=== PATIENT | female | born 2000 | race African-American/Black ===

== ENCOUNTER 2025-04-07 14:55 | Emergency (ER) | payer OTHER, SELFPAY ==
[2025-04-07 15:07] VITALS: BP 123/66; PULSE 116; RESP 18; TEMP 37; O2SAT 99; BMI 32.7
--- NOTE | 2025-04-07 15:08 | ED.GENADULT ---
HPI - General Adult General Chief complaint: Upper Respiratory Symptoms Stated complaint: vomiting, dizziness, abd pain - pt is Time Seen by Provider: 04/07/25 18:11 Source: patient Mode of arrival: ambulatory Limitations: no limitations History of Present Illness ED Provider: VITALY LEAL PA-C HPI narrative: 25-year-old female, currently 14 weeks , presents to the ED today for evaluation of nausea, vomiting, poor p.o. intake, generalized weakness, dizziness, congestion, cough, headache x yesterday. She is currently in town from [place], visiting her family for her gender reveal. She follows with her OB in [place] and has already had ultrasound confirmation of intrauterine . Reports taking a COVID test at home that was negative. Denies any abdominal pain, urinary symptoms, vaginal discharge or bleeding, flank pain. Related Data Previous Rx's ?Medication ?Instructions ?Recorded cefuroxime axetil 250 mg tablet 250 mg PO BID 7 days #13 tabs 04/07/25 ondansetron 4 mg disintegrating 4 mg PO Q8H PRN nausea and 04/07/25 tablet vomiting #10 tabs oseltamivir 75 mg capsule (Tamiflu) 75 mg PO BID 5 days #9 caps 04/07/25 Allergies Allergy/AdvReac Type Severity Reaction Status Date / Time shellfish derived (shellfish) Allergy Intermediate Facial Verified 04/07/25 15:11 Swelling Review of Systems Review of Systems: Yes all other systems are reviewed and are negative PMFSH Past Medical History Attestation statement: The following information was validated with the patient. Source: old records reviewed and nursing notes reviewed Social History Social History Smoked in Last 30 Days: No Use of substances other than those prescribed or required for medical reasons: No Advance Directives: No Advance Directives Information Provided: No Do you have a plan to hurt others: No Plan Patient : Yes Physical Exam ED Vital Signs: Vital Signs - 24 hr 04/07/25 15:07 04/07/25 16:10 04/07/25 19:37 Temperature 98.6 F 98.6 F 98.1 F Pulse Rate 116 H 120 H 108 H Respiratory Rate 18 16 17 Blood Pressure 123/66 134/77 109/60 Pulse Oximetry 99 97 99 Oxygen Delivery Method Room Air Room Air Room Air 04/07/25 19:50 04/07/25 19:52 Temperature 0 F L Pulse Rate 0 L Respiratory Rate 0 L Blood Pressure 0/0 L Pulse Oximetry 100 100 Oxygen Delivery Method Room Air Room Air BMI result Body Mass Index 32.7 Tachycardic, vitals are otherwise WNL General: Well appearing, in no acute distress. Skin: Warm, dry, intact. No rashes or lesions. Head: Normocephalic, atraumatic. EENT: Hearing is intact b/l. Conjunctiva clear. PERRLA. EOM intact. Moist mucous membranes.? Neck: Supple without LAD Cardiac: Chest wall symmetric. RRR Lungs: Normal respiratory effort without accessory muscle use. CTA bilaterally. No rales, rhonchi, or wheezes.? Abdomen: soft, non-tender, non-distended. No rebound tenderness or guarding. Positive BS x4. No CVAT bilaterally Back: No midline spinous or paraspinal tenderness. No step off deformity. Ext: Upper and lower extremities atraumatic, without tenderness, deformity, swelling or erythema Neuro: AOx3. Normal speech. Ambulating with steady gait. Course Course Course Narrative: RME, this is a rapid medical exam performed by Néstor Rueda please refer to primary provider for complete H&P- 25-year-old female presents for evaluation of flu-like symptoms as well as nausea and vomiting. She reports that she is about 14 weeks . She is Reevaluation(s) Reevaluation #1: CBC without leukocytosis or left shift. no anemia, h&h stable. chemistry unremarkable. beta hcg - [id number]. she has no abdominal pain, vaginal bleeding/ abdnormal discharge. no need for imaging at this time. Patient has a UTI - will start on ceftin. She is influenza + - will start on tamiflu. She received IVF, and tylenol in ED - feels much better, tolerating PO. Patient has remained stable throughout ED visit today. Discussed worrisome signs and symptoms and when to return to the ED. All questions answered at this time. Patient is agreeable with disposition and stable for discharge. Medications Administered Discontinued Medications Generic Name Dose Route Start Last Admin Trade Name Freq PRN Reason Stop Dose Admin Cefuroxime Axetil 250 mg 04/07/25 19:28 04/07/25 19:41 Cefuroxime Axetil 250 Mg Tablet PO 04/07/25 19:29 250 mg ONCE ONE Administration Sodium Chloride 1,000 mls @ 999 mls/hr 04/07/25 18:00 04/07/25 19:23 Ns IV 04/07/25 19:00 Infused .Q1H1M CHRISTY Infusion Acetaminophen 1,000 mg in 100 mls @ 400 mls/hr 04/07/25 17:51 04/07/25 19:23 Ofirmev IV 04/07/25 18:05 Infused ONCE ONE Infusion Oseltamivir Phosphate 75 mg 04/07/25 19:28 04/07/25 19:41 Oseltamivir Phosphate 75 Mg Capsule PO 04/07/25 19:29 75 mg ONCE ONE Administration Medical Decision Making Medical Decision Making [facility] Narrative: 25-year-old female, currently 14 weeks , presents to the ED today for evaluation of nausea, vomiting, poor p.o. intake, generalized weakness, dizziness, congestion, cough, headache x yesterday. Differential diagnosis includes viral syndrome, anemia, electrolyte abnormality, dehydration, gastroenteritis, IUP Plan for labs, viral swabs, UA, ivf + tylenol and re-eval. Differential Diagnosis Differential Diagnoses: The differential diagnosis associated with the presentation includes as above. Admission/Observation Not indicated Lab Data [facility] Lab Attestation statement: I reviewed the patient's lab results. As above 04/07/25 15:36 04/07/25 15:36 Labs: Lab Results 04/07/25 Range/Units 15:36 WBC 7.2 (4.8-10.8) X10*3/uL RBC 4.51 (4.20-5.50) X10*6/uL Hgb 13.2 (12.0-16.0) g/dl Hct 38.6 (37.0-47.0) % MCV 85.6 (80.0-98.0) fL MCH 29.3 (27.0-33.0) pg MCHC 34.2 (31.0-35.0) g/dl RDW 12.4 (11.0-16.0) % Plt Count 237 (160-400) X10*3/uL MPV 10.0 (9.4-12.3) fL Immature Gran % (Auto) 0.6 H (0.0-0.4) % Neut % (Auto) 85.6 H (45-73) % Lymph % (Auto) 6.4 L (20-40) % [place] % (Auto) 6.4 (2-11) % Eos % (Auto) 0.7 (0-4) % Baso % (Auto) 0.3 (0-2) % Lymph # (Auto) 0.5 L (1.2-4.9) X10*3/uL [place] # (Auto) 0.5 (0.1-1.2) X10*3/uL Eos # (Auto) 0.1 (0.0-0.4) X10*3/uL Baso # (Auto) 0.0 (0.0-0.2) X10*3/uL Abs Immat Gran (auto) 0.04 H (0.00-0.03) X10*3/uL Absolute Neuts (auto) 6.2 (2.0-8.3) x10*3/uL Absolute Nucleated RBC 0.000 (0.0-0.012) X10*3/uL Nucleated RBC % (auto) 0.0 (0.0-0.2) /100WBC Sodium 132 L (135-145) mmol/L Potassium 3.3 (3.3-5.1) mmol/L Chloride 102 (96-108) mmol/L Carbon Dioxide 22 (22-29) mmol/L Anion Gap 11 L (12-20) BUN 6 L (9-16) mg/dL Creatinine 0.53 (0.5-1.4) mg/dL Estim Creat Clear Calc 148.9 Estimated GFR > 60 Random Glucose 128 H (60-115) mg/dL Calcium 9.0 (8.4-10.2) mg/dL Total Bilirubin 0.2 (0.0-1.0) mg/dL AST 30 (5-31) U/L ALT 20 (0-31) U/L Alkaline Phosphatase 64 (39-117) U/L Total Protein 7.0 (6.5-8.0) g/dL Albumin 3.8 (3.5-5.0) g/dL Lipase 10 (8-78) U/L Beta HCG, Quant 21973 mIU/mL Urine Color Yellow Urine Appearance Cloudy Urine pH 6.0 (5.0-9.0) Ur Specific [place] 1.025 (1.005-1.025) Urine Protein 30 (1+) H (Neg-Trace) mg/dL Urine Glucose (UA) Negative (Negative) mg/dL Urine Ketones 40 (Negative) mg/dL Urine Blood Negative (Negative) Urine Nitrite Negative (Negative) Ur Leukocyte Esterase Small (1+) H (Negative) Urine RBC 0-2 (0-2) /HPF Urine WBC 11-20 H (0-5) /HPF Ur Squamous Epith Cells 11-20 (0-2) /HPF Urine Bacteria 2+ (None Seen) Hyaline Casts 0-2 (0-2) /LPF Influenza Type A (PCR) POSITIVE A (Negative) Influenza Type B (PCR) NEGATIVE (Negative) RSV RNA Qual (PCR) NEGATIVE (Negative) SARS-CoV-2 RNA (RT-PCR) NEGATIVE (Negative) External Record Review External record reviewed: Inpatient record Prescription Management I considered prescription management with: Antiviral (Tamiflu), Antibiotic (Ceftin) and Other (zofran) Chronic Conditions Patient?s care impacted by: Other () Social Determinants Patient?s care significantly limited by Social Determinants of Health including: Other Social Determinant of Health Critical Care Time Critical Care Time Critical Care Time: No Discharge Plan Discharge Clinical Impression: Influenza A, , Urinary tract infection Patient Disposition: Home, Self-Care Instructions: Urinary Tract Infection in Women (ED), at 11 to 14 Weeks (ED) Additional Instructions: Your blood work is reassuring. Your hormone measures 50[address]. Your urine shows a urinary tract infection. I am sending an antibiotic (ceftin) to your pharmacy. You were given your 1st dose in the ED today. Take your next dose tomorrow and make sure to complete the entire course of antibiotics. You tested positive for influenza A. I am starting you on Tamiflu, an antiviral. This should help decrease the severity of her symptoms. You were given your 1st dose in the ED today. Take your next dose tomorrow. Zofran has been sent to your pharmacy to help you were nausea/vomiting Follow up with your OB.. Return with any new or worsening symptoms. In the case of an emergency call 911 Prescriptions: New oseltamivir [Tamiflu] 75 mg capsule 75 mg PO BID 5 Days Qty: 9 0RF cefuroxime axetil 250 mg tablet 250 mg PO BID 7 Days Qty: 13 0RF ondansetron 4 mg tablet,disintegrating 4 mg PO Q8H PRN (Reason: nausea and vomiting) Qty: 10 0RF Referrals: Physician,Unknown J [Primary Care Provider, Medical] Interventions: ED Discharge Assessment Last Done: 04/07/25 19:52 Discharge Date/Time: 04/07/25 19:53 Print Language: Wolof
[2025-04-07 15:43] LABS: MANUAL DIFF FLAG NO
[2025-04-07 15:45] LABS: Appearance Urine Cloudy; Glucose Urine UA Negative (Negative); Hematocrit 38.6 % (37.0-47.0); Hemoglobin 13.2 g/dl (12.0-16.0); Imm Gran Abs Auto 0.04 X10*3/uL (0.00-0.03); Imm Gran Pct Auto 0.6 % (0.0-0.4); Lymphocytes Absolute Auto 0.5 X10*3/uL (1.2-4.9); Mean Corpuscular HGB Conc 34.2 g/dl (31.0-35.0); Mean Corpuscular Hemoglobin 29.3 pg (27.0-33.0); Mean Corpuscular Volume 85.6 fL (80.0-98.0); NRBC Abs Auto 0.000 X10*3/uL (0.0-0.012); NRBC Pct Auto 0.0 /100WBC (0.0-0.2); PH 6.0 (5.0-9.0); Platelet Count 237 X10*3/uL (160-400); Red Blood Count 4.51 X10*6/uL (4.20-5.50); Specific Gravity - Urine 1.025 (1.005-1.025); UMIC TRIGGER UACC YES; White Blood Count 7.2 X10*3/uL (4.8-10.8)
[2025-04-07 15:48] LABS: UACC Culture Trigger YES
[2025-04-07 15:59] LABS: Alanine Aminotransferase 20 U/L (0-31); Albumin Level 3.8 g/dL (3.5-5.0); Alkaline Phosphatase 64 U/L (39-117); Anion Gap 11 (12-20); Aspartate Amino Transferase 30 U/L (5-31); Blood Urea Nitrogen 6 mg/dL (9-16); Calcium 9.0 mg/dL (8.4-10.2); Carbon Dioxide 22 mmol/L (22-29); Chloride 102 mmol/L (96-108); Creatinine Clr Calc Pharmacy 148.9; Estimated Glomerular Filt Rate > 60; Lipase 10 U/L (8-78); Potassium 3.3 mmol/L (3.3-5.1); Sodium 132 mmol/L (135-145); Total Protein 7.0 g/dL (6.5-8.0)
[2025-04-07 16:10] VITALS: BP 134/77; PULSE 120; RESP 16; TEMP 37; O2SAT 97
[2025-04-07 16:20] LABS: Resp Syncy Virus RNA Qual PCR NEGATIVE (Negative); SARS COV2 PCR INHOUSE NEGATIVE (Negative)
--- OUTSIDE RECORDS SUMMARY | 2025-04-07 18:29 | XMS_ITS | Encounter Summary ---
Author Organization [facility] Address [address] [place] [address] Care Team Providers Care Irish Moss Operator Name Role Phone JUAN PABLO JACKSON MD Primary Care Provid er JUAN PABLO JACKSON MD Unavailable [phone] Source Comments Please be aware that You and/or your organization are solely responsible for the use, security, privacy, and any decisions made with any information you receive from [email or web address] Encounter Details Date Type Department Care Team (Late st Contact Info) Description 11/23/2024 [facility] Health Information Management [address] [place] [address] Provider, Not In System, TECHNICAL TRAINING MANAGER-C Provider Not in System Social History Tobacco Use Types Packs/Day Years Used Date Smoking Tobacco: Never Passive Smoke Exposure: Never Smokeless Tobacco: Never Alcohol Use Standard Drinks/Week Comments Not Currently 0 (1 standard drink = 0.6 oz pur e alcohol) Humiliation, Afraid, Rape, and Kick questionnair e Answer Date Recorded Within the last year, have y ou been afraid of your partner or ex-partner? No 08/24/2022 Within the last year, have y ou been humiliated or emotionally abused in other ways by your partner or ex-partner? No Within the last year, have y ou been kicked, hit, slapped, or otherwise physically hurt by your partner or ex-partner? No 08/24/2022 Within the last year, have y ou been raped or forced to have any kind of sexual activity by your partner or ex-partner? No 08/24/2022 AUDIT-C Answer Date Recorded Q1: How often do you have a drink containing alcohol? Never 12/16/2023 Q2: How many drinks containi ng alcohol do you have on a typical day when you are drinking? Patient does not drink Q3: How often do you have si x or more drinks on one occasion? Never 12/16/2023 Overall Financial Resource Strain (CARDIA) Answe r Date Recorded How hard is it for you to pa y for the very basics like food, housing, medical care, and heating? Not hard at all 08/24/2022 PHQ-2 Answer Date Recorded Patient Health Questionnaire-2 Score 0 07/11/2021 [facility] - Occupational Stress Questionnaire Answer Date Recorded Do you feel stress - tense, restless, nervous, or anxious, or unable to sleep at night because your mind is troubled all the time - these days? Not at all 08/24/2022 [place] Depression Scale Answer Date Recorded [place] Depression Scale Total 0 08/24/2022 The thought of harming myself has occurred to me . Never 08/24/2022 Food Insecurity Answer Date Recorded Within the past 12 months, y ou worried that your food would run out before you got the money to buy more. 1 08/24/2022 Within the past 12 months, t he food you bought just didn't last and you didn't have money to get more. 1 08/24/2022 Transportation Needs Answer Date Record ed In the past 12 months, has l ack of transportation kept you from medical appointments or from getting medications? 2 08/10 In the past 12 months, has l ack of transportation kept you from meetings, work, or from getting things needed for daily living? 2 08/24/2022 [facility] Housing Answer Date Recorded Living Situation Not on file 11/26/2022 Housing Problems Not on file 11/26/2022 [facility] Safety Answer Date Recorded Threatened Not on file 11/26/2022 Insulted Not on file 11/26/2022 Physically Hurt Not on file 11/26/2022 Scream Not on file 11/26/2022 Comments No Sex and Gender Information Value Date Recorded Sex Assigned at Not on file Legal Sex Female 12:10 PM EST Gender Identity Not on file Sexual Orientation Not on file documented as of this encounter Functional Status * Are you deaf or do you have serious difficulty hearing? Answer Date of Assessment Author No 08/24/2022 7:42 AM EDT Pilar Sharma RN * Are you blind or do you have serious difficulty seeing, even when wearing glasses? Answer Date of Assessment Author No 08/24/2022 7:42 AM EDT Pilar Sharma RN * Do you have serious difficulty walking or climbing stairs? Answer Date of Assessment Author No 08/24/2022 7:42 AM EDT Pilar Sharma RN * Do you have serious difficulty dressing or bathing? Answer Date of Assessment Author No 08/24/2022 7:42 AM EDT Pilar Sharma RN * Because of a physical, mental, or emotional condition, do you have serious difficulty doing errandsalone such as visiting the doctor? Answer Date of Assessment Author No 08/24/2022 7:42 AM EDT Pilar Sharma RN documented as of this encounter Mental Status * Because of a physical, mental, or emotional condition, do you have serious difficulty concentrating, remembering, or making decisions? (5 years old or older) Answer Entry Date Author No 08/24/2022 7:42 AM EDT Pilar Sharma RN documented in this encounter Plan of Treatment Not on file documented as of this encounter Visit Diagnoses Not on filedocumented in this encounter Additional Health Concerns Infection Onset Date Last Indicated Resolved Time Gastrointestinal Rule-Out 04/19/2023 04/19/2023 Adenovirus 11/08/2024 11/08/2024 12/06/2024 10:0 6 PM EDT COVID-19 11/08/2024 11/08/2024 11/28/2024 10:0 4 PM EDT COVID-19 Rule-Out 03/25/2025 03/25/2025 03/25/2025 8:00 AM EST documented as of this encounter Care Teams Irish Moss Operator Relationship Specialty Start Date End Date JUAN PABLO JACKSON MD PCP - General Family Medicine 06/26/21 JUAN PABLO JACKSON MD [address] [facility] [place] [address] PCP - Raheel CFD Attributed Provider 11/11/23 documented as of this encounter
--- OUTSIDE RECORDS SUMMARY | 2025-04-07 18:29 | XMS_ITS | Encounter Summary ---
Author Organization [facility] Address [address] [place] [address] Care Team Providers Care Craft Superintendent Name Role Phone JUAN PABLO JACKSON MD Primary Care Provid er JUAN PABLO JACKSON MD Unavailable [phone]- [phone] Source Comments Please be aware that You and/or your organization are solely responsible for the use, security, privacy, and any decisions made with any information you receive from [employer] Encounter Details Date Type Department Care Team (Late st Contact Info) Description 02/21/2025 Results Follow-Up [facility] Emergency [address] [place] [address] Wilberto Blake, CARMINE [address] [place] [phone] Urine culture Social History Tobacco Use Types Packs/Day Years [...] ways by your partner or ex-partner? No 05 / Within the last year, have y ou [...] Recorded Patient Health Questionnaire-2 Score 0 07/11/2021 [facility] - Occupational Stress Questionnaire Answer Date Recorded Do you feel stress - tense, restless, nervous, or anxious, or unable to sleep at night because your mind is troubled all the time - these days? Not at all 08/24/2022 [place] Depression Scale Answer Date Recorded [place] Depression Scale Total 0 08/24/2022 The thought [...] things needed for daily living? 2 08/24/2022 [facility] Housing Answer Date Recorded Living Situation Not on file 11/26/2022 Housing Problems Not on file 11/26/2022 [facility] Safety Answer Date Recorded Threatened Not on file 11/26/2022 Insulted Not on file 11/26/2022 Physically Hurt Not on file 11/26/2022 Scream Not on file 11/26/2022 Comments Yes Sex and Gender Information Value Date Recorded [...] Indicated Resolved Time Gastrointestinal Rule-Out 04/19/2023 04/19/2023 COVID-19 Rule-Out 03/25/2025 03/25/2025 03/25/2025 8:00 AM EST documented as of this encounter Care Teams Craft Superintendent Relationship Specialty Start Date End Date JUAN PABLO JACKSON MD PCP - General Family Medicine 06/26/21 JUAN PABLO JACKSON MD [address] [place] [address] [address] [place] [id number] PCP - Raheel CFD Attributed Provider 11/11/23 documented as of this encounter
--- OUTSIDE RECORDS SUMMARY | 2025-04-07 18:29 | XMS_ITS | Clinical Summary ---
Author Organization [facility] Address [address] [place] [address] Care Team Providers Care Boner Meat Name Role Phone JUAN PABLO JACKSON MD Primary Care Provid er JUAN PABLO JACKSON MD Unavailable [phone] Allergies Active Allergy Reactions Criticality Noted Date Comments Dog Epithelium (Canis Lupus Familiaris) Itching,Other 07/16/2022 Latex Itching,Other 07/16/2022 Peanut Rash Low 07/16/2022 Shellfish Protein-Containing Drug Products Rash Low 07/16/2022 Medications baclofen (Lioresal) 10 MG tabletIndicatio ns:Back muscle spasm Take 0.5 tablets (5 mg total) by mouth 3 (three) times a day if needed for muscle spasms. 135 tablet 11/27/2024 Active multivitamin () 27-0.8 MG tablet Take 1 tablet by mouth 1 (one) time each day. 90 tablet 02/07/2025 05/08/19 26 Active doxylamine (Unisom) 25 MG tabletIndicatio ns:Nausea and/or Vomiting in Take 1 tablet (25 mg total) by mouth at night if needed for nausea. 30 tablet 02/17/2025 Active amoxicillin (Amoxil) 500 MG tablet Take 1 tablet (500 mg total) by mouth every 8 (eight) hours. 21 tablet 02/21/2025 Active pyridoxine 50 MG tablet Take 1 tablet (50 mg total) by mouth 1 (one) time each day. 30 tablet 03/25/2025 04/24/19 26 Active pyridoxine 25 MG tablet Take 1 tablet (25 mg total) by mouth 3 (three) times a day if needed (Nausea or vomiting). 60 tablet 02/17/2025 03/19/20 25 metoclopramide (Reglan) 10 MG tablet Take 1 tablet (10 mg total) by mouth 4 (four) times a day for 10 days. 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 Continue with local heat compresses and anti-inflammatories Chronic bilateral low back pain with right-sided sciatica 07/11/2021 Assessment & Plan (07/11/2021 11:16 AM EDT): Most likely has mechanical back pain due to the work she does. Advised to use local heat compresses, may use [id number] nonsteroidal anti-inflammatories. Get x-rays. Reflexes are brisk bilaterally. If x-rays are negative, will order MRI. Advised not to lift, pull, push any heavy weight is still a we find out what is going on with her back. Disorder of both sacroiliac joints 07/11/2021 Assessment & Plan (07/11/2021 11:17 AM EDT): Same etiology most likely, advised to use local heat compresses, nonsteroidal anti-inflammatories and avoid lifting, pulling, pushing heavy weights, do stretching exercises Hidradenitis axillaris 07/11/2021 Assessment & Plan (07/11/2021 11:18 AM EDT): Not active at this time but most likely has hidradenitis, advised to keep area clean and dry, use topical antibiotic ointment after shaving. Back muscle spasm 07/11/2021 Assessment & Plan (08/27/2021 11:48 AM EDT): Most likely due to pars defect at the L5 level, use local heat compresses. Assessment & Plan (07/11/2021 11:18 AM EDT): Start muscle relaxants, Risk, benefits, alternatives and side effects d/w patient, use local heat compresses. Do stretching Comments Yes Resolved Problems Problem Noted Date Diagnosed Date Resolved Date PROM with onset of l abor within 24 hours of rupture 08/23/2022 08/24/2022 Encounters Date Type Department Care Team Description 03/25/2025 4:21 AM EST - 03/25/2025 8:21 AM EST Emergency [facility] [address] [place] [address] Nausea and vomiting during (Primary Dx); First trimester ; Urinary tract infection in mother during first trimester of Discharge Disposition: Home or Self Care 03/25/2025 Travel 02/21/2025 Results Follow-Up [facility] [address] [place] [address] Wilberto Blake PA-C Urine culture 02/17/2025 7:29 PM EST - 02/17/2025 10:47 PM EST Emergency [facility] [address] [place] [address] Radha Cooper MD Vaginal bleeding in , first trimester (Primary Dx); Subchorionic hematoma in first trimester, single or unspecified fetus; Asymptomatic bacteriuria during in first trimester; Nausea and vomiting in Discharge Disposition: Home or Self Care 02/17/2025 Travel 02/12/2025 11:52 AM EST - 02/12/2025 1:12 PM EST Emergency [facility] [address] [place] [address] Roberth Mar DO Threatened miscarriage (Primary Dx); Vaginal bleeding in , first trimester; Subchorionic hematoma in first trimester, single or unspecified fetus Discharge Disposition: Home or Self Care 02/12/2025 Travel 02/07/2025 2:10 PM EDT - 02/07/2025 3:36 PM EDT Emergency [facility] Emergency Department [address] [place] [phone] Emily Irvin MD First trimester (Primary Dx) Discharge Disposition: Home or Self Care 02/07/2025 Travel 02/04/2025 10:06 AM EDT - 02/04/2025 12:00 PM EDT Emergency [facility] Emergency Department [address] [place] [phone] Quintin Titus MD Threatened miscarriage (Primary Dx) Discharge Disposition: Home or Self Care 02/04/2025 Travel 02/03/2025 Orders Only [address] [place] [address] [place] [phone] JUAN PABLO JACKSON MD 02/01/2025 3:15 PM EDT Office Visit [address] [place] [address] [place] [phone] JUAN PABLO JACKSON MD Less than 8 weeks gestation of (Primary Dx) from Last 3 Months Family History Medical History Relation Name Comments Hypertension Paternal Grandmother Relation Name Status Comments Paternal Grandmother Social History Tobacco Use Types Packs/Day Years Used Date Smoking Tobacco: Never Passive Smoke Exposure: Never Smokeless Tobacco: Never Tobacco Cessation:Counseling Given: No Alcohol Use Standard Drinks/Week Comments Not Currently [...] Recorded Patient Health Questionnaire-2 Score 0 07/11/2021 [facility] - Occupational Stress Questionnaire Answer Date Recorded Do you feel stress - tense, restless, nervous, or anxious, or unable to sleep at night because your mind is troubled all the time - these days? Not at all 08/24/2022 Mora Depression Scale Answer Date Recorded Mora Depression Scale Total 0 08/24/2022 The thought [...] things needed for daily living? 2 08/24/2022 [facility] Housing Answer Date Recorded Living Situation Not on file 11/26/2022 Housing Problems Not on file 11/26/2022 [facility] Safety Answer Date Recorded Threatened Not on file 11/26/2022 Insulted Not on file 11/26/2022 Physically Hurt Not on file 11/26/2022 Scream Not on file 11/26/2022 Comments Yes Sex and Gender Information Value Date Recorded Sex Assigned at Not on file Legal Sex Female 12:10 PM EST Gender Identity Not on file Sexual Orientation Not on file Last Filed Vital Signs Vital Sign Reading Time Taken Comments Blood Pressure 111/62 03/25/2025 8:00 AM EST Pulse 75 03/25/2025 8:00 AM EST Temperature 36.7 C (98.1 F) 03/25/2025 8:00 AM EST Respiratory Rate 16 03/25/2025 8:00 AM EST Oxygen Saturation 100% 03/25/2025 8:00 AM EST Inhaled Oxygen Concentration - - Weight 75 kg (165 lb 5.5 oz) 03/25/2025 4:18 AM EST Height 152.4 cm (5') 03/25/2025 4:18 AM EST Body Mass Index 32.29 03/25/2025 4:18 AM EST Plan of Treatment Health Maintenance Due Date Last Done Comments MMR Vaccines (1 of 1 - Standard series) 2002 Varicella Vaccines (1 of 2 - 13+ 2-dose series) 2014 HPV Vaccines (1 - 3-dose series) 2016 DTaP/Tdap/Td Vaccines (1 - Tdap) 2020 Hepatitis B Vaccines (1 of 3 - 19+ 3-dose series) 2020 COVID-19 Vaccine (1 - 2024- season) 2024 Influenza Vaccine (#1) 2024 Annual Physical 12/16/2024 12/16/2023 Pap Smear 2025 2022 Depression Screening 02/01/2026 02/01/2025 Zoster Vaccines (1 of 2) 2051 Respiratory Syncytial Virus (RSV) 60 years and older and/or patients (1 - 1-dose 75+ series) 2076 HIV Screening Completed 06/26/2022, 2022 Chlamydia Screening Discontinued 11/08/2024, 04/14/2023, 06/26/2022, Additional history exists Hepatitis A Vaccines Aged Out No long er eligible based on patient's age to complete this topic Meningococcal B Vaccine Aged Out No l onger eligible based on patient's age to complete this topic Meningococcal Vaccine Aged Out No kristian storm eligible based on patient's age to complete this topic Pneumococcal: Pediatrics (0 to 5 Yrs) and At-Risk Patients (6 to 49 Years) Aged Out No longer eligi ble based on patient's age to complete this topic Respiratory Syncytial Virus (RSV) <20 months Aged Out No longer eligible based on patient's age to complete this topic Procedures Procedure Name Priority Date/Time Associated Diagnosis Comments FLU A/B & COVID PCR STAT 03/25/2025 6 :29 AM EST BKR MICROSCOPIC, URINE (NUM) STAT 03/25/2025 4:44 AM EST URINALYSIS WITH REFLEX MICROSCOPIC AND REFLEX CULTURE STAT 03/25/2025 4:44 AM EST URINE CULTURE STAT 03/25/2025 4:44 AM EST EXTRA GREEN TOP Routine 03/25/2025 4:35 AM EST EXTRA LIGHT BLUE TOP Routine 03/25/2025 4:35 AM EST EXTRA TUBES Routine 03/25/2025 4:35 AM EST LIPASE STAT 03/25/2025 4:35 AM EST COMPREHENSIVE METABOLIC PANEL STAT 03/25/2025 4:35 AM EST CBC W/AUTO DIFF, REFLEX MANUAL DIFF IF INDICATED STAT 03/25/2025 4:35 AM EST US OB < 14 WEEKS EARLY TRANSVAGINAL ED Priority 02/17/2025 8:47 PM EST BKR MICROSCOPIC, URINE (NUM) STAT 02/17/2025 7:48 PM EST URINALYSIS WITH REFLEX MICROSCOPIC AND REFLEX CULTURE STAT 02/17/2025 7:48 PM EST URINE CULTURE STAT 02/17/2025 7:48 PM EST HCG, QUANTITATIVE, STAT 02/17/2025 7:44 PM EST COMPREHENSIVE METABOLIC PANEL STAT 02/17/2025 7:44 PM EST CBC W/AUTO DIFF, REFLEX MANUAL DIFF IF INDICATED STAT 02/17/2025 7:44 PM EST US OB < 14 WEEKS EARLY TRANSABDOMINAL TRANSVAGINAL ED Priority 02/12/2025 1:00 PM EST BKR POC , URINE Routine 02/12/2025 12:18 PM EST BKR MICROSCOPIC, URINE (NUM) STAT 02/12/2025 12:17 PM EST URINALYSIS WITH REFLEX MICROSCOPIC AND REFLEX CULTURE STAT 02/12/2025 12:17 PM EST URINE CULTURE STAT 02/12/2025 12:17 PM EST HCG, QUANTITATIVE, STAT 02/12/2025 12:10 PM EST ABO/RH STAT 02/12/2025 12:10 PM EST HEPATIC FUNCTION PANEL STAT 12:10 PM EST PROTIME-INR STAT 02/12/2025 12:10 PM EST APTT STAT 02/12/2025 12:10 PM EST BASIC METABOLIC PANEL STAT 02/12/2025 12:10 PM EST CBC W/AUTO DIFF, REFLEX MANUAL DIFF IF INDICATED STAT 02/12/2025 12:10 PM EST HCG, QUANTITATIVE, STAT 02/07/2025 2:23 PM EDT URINALYSIS WITH REFLEX MICROSCOPIC AND REFLEX CULTURE STAT 02/04/2025 11:43 AM EDT HCG, QUANTITATIVE, STAT 02/04/2025 10:39 AM EDT ABO/RH STAT 02/04/2025 10:39 AM EDT HCG SERUM QUAL W REFLEX TO QUANT STAT 02/04/2025 10:39 AM EDT COMPREHENSIVE METABOLIC PANEL STAT 02/04/2025 10:39 AM EDT CBC W/AUTO DIFF, REFLEX MANUAL DIFF IF INDICATED STAT 02/04/2025 10:39 AM EDT US OB < 14 WEEKS EARLY TRANSVAGINAL ED Priority 02/04/2025 10:32 AM EDT HCG TOTAL QUANTITATIVE Routine 10:30 AM EDT RESPIRATORY PANEL STAT 11/08/2024 5:0 6 AM EDT HIV ANTIBODY/ANTIGEN SCREEN Routine 06/26/2022 from Last 3 Months or Most Recently Relevant to Health Maintenance Results * FLU A/B & COVID PCR (03/25/2025 6:29 AM EST) SARS COV2 COVID19 PCR Not Detected Not Detected [facility] [employer],INC ._EUA 03/25/2025 8:00 AM EST [facility] Comment:This assay is intend ed for the detection of SARS CoV 2 Coronavirus 2019 on samples collected on nasopharyngeal swab. This assay is not indicated for evaluating clinical response and should not be used as test of cure. This assay is intended to be used along with the clinical and epidemiological evaluation of patients as part of the diagnosis for SARS CoV 2, following the current CDC guidelines. This test IS NOT able to identify coronavirus other than the SARS CoV 2 or other respiratory viruses. This test should be ordered accordingly with the current CDC guidelines and in consultation with Infection Prevention or the [facility] Public Health Department if required. Influenza A PCR Not Detected Not Detected [employer]_ROCH E [employer],INC ._EUA 03/25/2025 8:00 AM EST [facility] Influenza B, PCR Not Detected Not Detected [employer]_ROCH E [employer],INC ._EUA 03/25/2025 8:00 AM EST [facility] Swab Nasopharyngeal structure / Unknown Non-blood Collection / Unknown 03/25/2025 6:29 AM EST 03/25/2025 6:49 AM EST Lamont Sutton PA-C LAB MICROBIOLOGY - GENERAL ORD ERABLES Final Result [facility] [address] [place] [id number], * (ABNORMAL) Microscopic, urine (03/25/2025 4:44 AM EST) Only the most recent of3 resultswithin the time period is included. RBC, Urine 2 <=4 /HPF 03/25/2025 5:03 AM EST [facility] [place] WBC, Urine 17(H) <=4 /HPF 03/25/2025 5:03 AM EST [facility] Squamous Epithelial Cells, Urine 9(H) <=4 /HPF 03/25/2025 5:03 AM EST [facility] Bacteria, Urine Occasiona l(A) Negative /HPF 03/25/2025 5:03 AM EST [facility] [place] Mucus, Urine 3+(A) (none) /HPF 03/25/2025 5:03 AM EST [facility] Urine Urine specimen obtained by clean catch procedure / Unknown Non-blood Collection / Unknown 03/25/2025 4:44 AM EST 03/25/2025 4:54 AM EST Abelrado Knowles PA-C LAB URINE ORDERABLES Final Result [facility] [address] [place] [place] [address], * (ABNORMAL) Urinalysis with reflex microscopic and reflex culture (03/25/2025 4:44 AM EST) Only the most recent of4 resultswithin the time period is included. Color, Urine Yellow Straw, Yellow, Colorless 03/25/2025 5:00 AM EST [facility] Clarity, Urine Cloudy(A) Clear 03/25/2025 5:00 AM EST [facility] Leukocyte Esterase, Urine 3+(A) Negative 03/25/2025 5:00 AM EST [facility] Nitrite, Urine Negative Negative 03/25/2025 5:00 AM EST [facility] Urobilinogen, Urine 1+(A) Normal 03/25/2025 5:00 AM EST [facility] Protein, Qual, Urine Trace(A) Negative 03/25/2025 5:00 AM EST [facility] pH, Urine 6.0 5.0 - 8.5 03/25/2025 5:00 AM EST [facility] Blood, Urine Negative Negative 03/25/2025 5:00 AM EST [facility] Specific [place], Urine >1.030(H) 1.005 - 1.030 03/25/2025 5:00 AM EST [facility] Ketones, Urine Negative Negative 03/25/2025 5:00 AM EST [facility] Bilirubin, Urine Negative Negative 03/25/20 25 5:00 AM EST [facility] Glucose, Qual, Urine Negative Negative 03/25/2025 5:00 AM EST [facility] Urinalysis Comment 2024 5:00 AM EST [facility] Comment:This test was develo ped, and its performance characteristics determined by [facility]. It has not been cleared or approved by the Food and Drug Administration (FDA). The laboratory is regulated under the Clinical Laboratory Improvements Act (CLIA) as qualified to perform high complexity testing. This test is used for clinical purposes. It should not be regarded as investigational or for research. Urine Urine specimen obtained by clean catch procedure / Unknown Non-blood Collection / Unknown 03/25/2025 4:44 AM EST 03/25/2025 4:54 AM EST Abelardo ORO-C LAB URINE ORDERABLES Final Result Performing Organization Address City/[facility]/ZIP Co de Phone Number [facility] [address] [place] [address], * Urine culture (03/25/2025 4:44 AM EST) Only the most recent of3 resultswithin the time period is included. Urine Culture Mixed Urogenital Huong MERON 03/26/2025 11:40 AM EST [facility] Urine Urine specimen obtained by clean catch procedure / Unknown Non-blood Collection / Unknown 03/25/2025 4:44 AM EST 03/25/2025 5:03 AM EST [facility] Kiserg[facility] Benson ORO-Jannette LAB MICROBIOLOGY - G ENERAL ORDERABLES Final Result [facility] [address] [place] [address], * Extra Green Top (03/25/2025 4:35 AM EST) Extra Tube Hold for add-ons. 03/25/2025 11:02 AM EST [facility] Comment:Auto resulted. Blood Venous blood specimen / Unknown Venipuncture / Unknown 03/25/2025 4:35 AM EST 03/25/2025 4:42 AM EST Wero Cody Jesús [place] [facility] SPECIAL[facility] LAB BLOOD ORDERABLES F inal Result [facility] [address] [place] [address], * Extra Light Blue Top (03/25/2025 4:35 AM EST) Blood Venous blood specimen / Unknown Venipuncture / Unknown 03/25/2025 4:35 AM EST 03/25/2025 4:42 AM EST Wero Germain [facility] SPECIALIST LAB BLOOD ORDERABLES F inal Result Performing Organization Address [facility] Co de Phone Number [facility] [address] [place] [address], * CBC Auto Diff, Reflex Manual Diff if Indicated (03/25/2025 4:35 AM EST) Only the most recent of4 resultswithin the time period is included. WBC 9.08 4.40 - 10.50 10*3/uL 03/25/2025 4:48 AM EST [facility] [place] RBC 4.80 3.75 - 5.00 10*6/uL 03/25/2025 4:48 AM EST [facility] Hemoglobin 14.2 11.4 - 14.7 g/dL 03/25/2025 4:48 AM EST [facility] Hematocrit 41.8 34.3 - 45.5 % 03/25/2025 4:48 AM EST [facility] MCV 87.1 80.5 - 99.8 fL 03/25/2025 4:48 AM EST [facility] MCH 29.6 26.8 - 33.0 pg 03/25/2025 4:48 AM EST [facility] [place] MCHC 34.0 31.0 - 35.4 g/dL 03/25/2025 4:48 AM EST [facility] [place] RDW 12.3 11.7 - 14.7 % 03/25/2025 4:48 AM EST [facility] [place] Platelet Count 295 139 - 361 10*3/uL 03/25/2025 4:48 AM EST [facility] MPV 10.6 9.7 - 12.5 fL 03/25/2025 4:48 AM EST [facility] Neutrophils % 50.0 50.0 - 70.0 % 03/25/2025 4:48 AM EST [facility] Lymphocytes % 40.6 20.5 - 45.0 % 03/25/2025 4:48 AM EST [facility] Monocytes % 6.4 1.0 - 15.0 % 03/25/2025 4:48 AM EST [facility] Eosinophils % 2.3 0.0 - 5.0 % 03/25/2025 4:48 AM EST [facility] Basophils % 0.4 0.0 - 2.0 % 03/25/2025 4:48 AM EST [facility] Neutrophils Absolute 4.53 1.50 - 7.50 10*3/uL 03/25/2025 4:48 AM EST [facility] Lymphocytes Absolute 3.69 1.00 - 4.80 10*3/uL 03/25/2025 4:48 AM EST [facility] Monocytes Absolute 0.58 0.00 - 0.80 10*3/uL 03/25/2025 4:48 AM EST [facility] Eosinophils Absolute 0.21 0.00 - 0.50 10*3/uL 03/25/2025 4:48 AM EST [facility] Basophil Absolute 0.04 0.00 - 0.20 10*3/uL 03/25/2025 4:48 AM EST [facility] Blood Venous blood specimen / Unknown Venipuncture / Unknown 03/25/2025 4:35 AM EST 03/25/2025 4:42 AM EST us [facility] BLOOD ORDERABLES Final Result Performing Organization Address [facility]/ZIP Co de Phone Number [facility] [address] [place] [address], * Lipase (03/25/2025 4:35 AM EST) Pathologist [facility] Lipase 13 10 - 60 U/L [facility] [id number] V-2_[facility]_ EUA 03/25/2025 5:03 AM EST [facility] Blood Venous blood specimen / Unknown Venipuncture / Unknown 03/25/2025 4:35 AM EST 03/25/2025 4:43 AM EST [facility] LAB [facility]LOOD ORDERABLES Final Result Performing Organization Address [facility] Co de Phone Number [facility] [address] [place] [address], * (ABNORMAL) Comprehensive Metabolic Panel (CMP) (03/25/2025 4:35 AM EST) Only the most recent of3 resultswithin the time period is included. Pathologist [facility] Sodium 135 135 - 145 mmol/L [facility] ANTI-SARS -COV-2_RO HIGINIO DIAGNOSTI CS_EUA 03/25/2025 5:03 AM EST [facility] [place] Potassium 3.8 3.5 - 5.0 mmol/L [facility] ANTI-SARS -COV-2_RO HIGINIO DIAGNOSTI CS_EUA 03/25/2025 5:03 AM EST [facility] [place] Comment:Slight Hemolysis. Chloride 102 98 - 110 mmol/L [facility] ANTI-SARS -COV-2_RO HIGINIO DIAGNOSTI CS_EUA 03/25/2025 5:03 AM EST [facility] Carbon Dioxide 20.0(L) 24.0 - 32.0 mmol/L [facility] ANTI-SARS -COV-2_RO HIGINIO DIAGNOSTI CS_EUA 03/25/2025 5:03 AM EST [facility] [place] Anion Gap 13 5 - 15 mmol/L [facility] ANTI-SARS -COV-2_RO HIIGNIO [facility] 03/25/2025 5:03 AM EST [facility] [place] Comment: Hypoalbuminemia can cause the anion gap to be underestimated. Each g/dL that albumin is decreased causes the anion gap to be decreased by 2.5 mmol/L. Anion gap corrected for hypoalbuminemia = Anion Gap + 2.5(4-Albumin) BUN 7.6 5.0 - 25.0 mg/dL [facility] ANTI-SARS -COV-2_RO HIGINIO [facility] 03/25/2025 5:03 AM EST [facility] Creatinine 0.46(L) 0.60 - 1.20 mg/dL [facility] ANTI-SARS -COV-2_RO HIGINIO [facility] 03/25/2025 5:03 AM EST [facility] Glucose 88 70 - 100 mg/dL [facility] ANTI-SARS -COV-2_RO HIGINIO [facility] 03/25/2025 5:03 AM EST [facility] Calcium 8.9 8.5 - 10.5 mg/dL [facility] ANTI-SARS -COV-2_RO HIGINIO [facility] 03/25/2025 5:03 AM EST [facility] AST 18 5 - 46 U/L [facility] ANTI-SARS -COV-2_RO HIGINIO [facility] 03/25/2025 5:03 AM EST [facility] [place] ALT 10 4 - 51 U/L [facility] ANTI-SARS -COV-2_RO HIGINIO [facility] 03/25/2025 5:03 AM EST [facility] Alkaline Phosphatase 78 35 - 104 U/L [facility] ANTI-SARS -COV-2_RO HIGINIO [facility] 03/25/2025 5:03 AM EST [facility] Protein, Total 7.6 6.5 - 8.0 g/dL [facility] ANTI-SARS -COV-2_RO HIGINIO [facility] 03/25/2025 5:03 AM EST [facility] Albumin 3.80 3.20 - 5.50 g/dL [facility] ANTI-SARS -COV-2_RO HIGINIO DIAGNOSTI CS_EUA 03/25/2025 5:03 AM EST [facility] Globulin 3.8 1.9 - 3.9 g/dL [facility] ANTI-SARS -COV-2_RO HIGINIO DIAGNOSTI CS_EUA 03/25/2025 5:03 AM EST [facility] A/G Ratio 1.0(L) 1.1 - 2.2 [facility] ANTI-SARS -COV-2_RO HIGINIO DIAGNOSTI CS_EUA 03/25/2025 5:03 AM EST [facility] Bilirubin, Total 0.30 0.10 - 1.50 mg/dL [facility] ANTI-SARS -COV-2_RO HIGINIO DIAGNOSTI CS_EUA 03/25/2025 5:03 AM EST [facility] eGFR 137.2 >=60.0 mL/min/{1 .73_m2} 03/25/2025 5:03 AM EST [facility] Comment: GFR calculated based on CKD-EPI 2020 Creatinine Equation Age (Years) Average GFR 20-29 116 mL/min/1.73 m2 30-39 107 mL/min/1.73 m2 40-49 99 mL/min/1.73 m2 50-59 93 mL/min/1.73 m2 60-69 85 mL/min/1.73 m2 70+ 75 mL/min/1.73 m2 Acceptable GFR: >= 60 mL/min/1.73 m2 Chronic Kidney Disease: <60 mL/min/1.73 m2 Kidney Failure: <15 mL/min/1.73 m2 Blood Venous blood specimen / Unknown Venipuncture / Unknown 03/25/2025 4:35 AM EST 03/25/2025 4:43 AM EST us Abelardo Knowles PA-C LAB BLOOD ORDERABLES Final Result [facility] [address] [place] [place] [address], [place] [phone] * US OB < 14 Weeks Early Transvaginal (02/17/2025 8:47 PM EST) Only the most recent of2 resultswithin the time period is included. Anatomical Region Laterality Modality Body N/A Ultrasound Study GA Study Date Study HUMAIRA Working HUMAIRA (Source) 02/17/2025 Impressions 02/17/2025 9:02 PM EST 1. Single intrauterine gestation with documented cardiac activity as above. 2. Small subchorionic hematoma. Created by: Nikkie Serrano DO Signed by: Nikkie Serrano DO Signed on: 02/17/2025 21:02 EST Location: [id number] [facility] 02/17/2025 9:02 PM EST EXAM: US OB FIRST TRIMESTER INDICATION: Vaginal bleeding. COMPARISON: 02/12/2025. TECHNIQUE: Multiplanar bone-scale imaging of the pelvis was performed using transabdominal and for better assessment of the endometrium and/or adnexa, transvaginal technique. FINDINGS: INTRAUTERINE GESTATION: There is a single intrauterine gestation. The gestational sac has a normal appearance. POLE: Present. YOLK SAC: Present. HEART RATE: 119 beats per minute. MEASUREMENTS: GESTATIONAL SAC: 3.0 cm, 8 weeks, 2 days CRL: 0.4 cm, 6 weeks, 1 days HUMAIRA by CRL: 10/12/2025. HUMAIRA by LMP: 10/11/2025. UTERUS: Measures 9.0 x 6.7 x 5.6 cm. No mass. There is a 7 x 4 x 5 mm hypoechoic perigestational collection. RIGHT OVARY: Measures 3.7 x 2.6 x 2.0 cm. No mass. LEFT OVARY: Measures 3.0 x 2.5 x 2.1 cm. No mass. CUL DE SAC FLUID: None. Procedure Note Nikkie Serrano DO - 02/17/2025 EXAM: US OB FIRST TRIMESTER INDICATION: Vaginal bleeding. COMPARISON: 02/12/2025. TECHNIQUE: Multiplanar bone-scale imaging of the pelvis was performedusing transabdominal and for better assessment of the endometrium and/oradnexa, transvaginal technique. FINDINGS: INTRAUTERINE GESTATION: There is a single intrauterine gestation. Thegestational sac has a normal appearance. POLE: Present. YOLK SAC: Present. HEART RATE: 119 beats per minute. MEASUREMENTS: GESTATIONAL SAC: 3.0 cm, 8 weeks, 2 days CRL: 0.4 cm, 6 weeks, 1 days HUMAIRA by CRL: 10/12/2025. HUMAIRA by LMP: 10/11/2025. UTERUS: Measures 9.0 x 6.7 x 5.6 cm. No mass. There is a 7 x 4 x 5 mmhypoechoic perigestational collection. RIGHT OVARY: Measures 3.7 x 2.6 x 2.0 cm. No mass. LEFT OVARY: Measures 3.0 x 2.5 x 2.1 cm. No mass. CUL DE SAC FLUID: None. IMPRESSION: 1. Single intrauterine gestation with documented cardiac activity asabove. 2. Small subchorionic hematoma. Created by: Nikkie Serrano DO Signed by: Nikkie Serrano DO Signed on: 02/17/2025 21:02 EST Location: [place] [id number] us Radha Cooper MD IMG OB US PROCEDURES Eloise l Result * hCG, QuaNT, (02/17/2025 7:44 PM EST) Only the most recent of4 resultswithin the time period is included. Beta-hCG Quant 56,767.00 m[IU]/mL ELECSYS ANTI-SARS- COV-2_ROCH E DIAGNOSTIC S_EUA 02/17/2025 8:42 PM EST [facility] Blood Venous blood specimen / Unknown Venipuncture / Unknown 02/17/2025 7:44 PM EST 02/17/2025 7:53 PM EST Narrative [facility] - 02/17/2025 8:42 PM EST Approximate Gestational Age Based on hCG Result Weeks Since LMP Approximate hCG Range (Last Menstrual Period) (mIU/mL) HEALTHY NON- FEMALE <5 0.2 - 1 Weeks 5 - 50 1 - 2 Weeks 50 - 500 2 - 3 Weeks 100 - 5,000 3 - 4 Weeks 500 - 10,000 4 - 5 Weeks 1,000 - 50,000 5 - 6 Weeks 10,000 - 100,000 6 - 8 Weeks 15,000 - 200,000 8 - 12 Weeks 10,000 - 100,000 us Radha Cooper MD LAB BLOOD ORDERABLES Eloise margoth Result [facility] [place] [address], [place] [phone] * US OB < 14 Weeks Early Transabdominal Transvaginal (02/12/2025 1:00 PM EST) Anatomical Region Laterality Modality Pelvis N/A Ultrasound Study GA Study Date Study HUMAIRA Working HUMAIRA (Source) 02/12/2025 Impressions 02/12/2025 1:03 PM EST Lobular intrauterine gestational sac with a yolk sac but no pole identified. Correlation with quantitative beta hCG trend is recommended. Clinical and/or ultrasound follow-up would be of value to reassess viability. Trace subchorionic hematoma. Created by: Yakov Vazquez MD Signed by: Yakov Vazquez MD Signed on: 02/12/2025 13:03 EST Location: [id number] Narrative 02/12/2025 1:03 PM EST EXAM: US OB FIRST TRIMESTER INDICATION: Bleeding COMPARISON: 02/04/2025 TECHNIQUE: Multiplanar bone-scale imaging of the pelvis was performed using transabdominal and for better assessment of the endometrium and/or adnexa, transvaginal technique. FINDINGS: INTRAUTERINE GESTATION: There is a 1.5 cm gestational sac with a yolk sac but no normal pole identified. HUMAIRA by gestational sac measurement: 10/06/2025. HUMAIRA by LMP: 10/11/2025. UTERUS: Measures 7.7 x 4.6 x 5.1 cm. No mass. RIGHT OVARY: Measures 3.5 x 1.7 x 2.1 cm. Probable corpus luteum measures up to 2.6 cm. LEFT OVARY: Measures 2.1 x 1.6 x 1.4 cm. No mass. CUL DE SAC FLUID: Small in amount Procedure Note Yakov Vazquez MD - 02/12/2025 EXAM: US OB FIRST TRIMESTER INDICATION: Bleeding COMPARISON: 02/04/2025 TECHNIQUE: Multiplanar bone-scale imaging of the pelvis was performedusing transabdominal and for better assessment of the endometrium and/oradnexa, transvaginal technique. FINDINGS: INTRAUTERINE GESTATION: There is a 1.5 cm gestational sac with a yolk sacbut no normal pole identified. HUMAIRA by gestational sac measurement: 10/06/2025. HUMAIRA by LMP: 10/11/2025. UTERUS: Measures 7.7 x 4.6 x 5.1 cm. No mass. RIGHT OVARY: Measures 3.5 x 1.7 x 2.1 cm. Probable corpus luteum measuresup to 2.6 cm. LEFT OVARY: Measures 2.1 x 1.6 x 1.4 cm. No mass. CUL DE SAC FLUID: Small in amount IMPRESSION: Lobular intrauterine gestational sac with a yolk sac but no poleidentified. Correlation with quantitative beta hCG trend is recommended.Clinical and/or ultrasound follow-up would be of value to reassessviability. Trace subchorionic hematoma. Created by: Yakov Vazquez MD Signed by: Yakov Vazquez MD Signed on: 02/12/2025 13:03 EST Location: [id number] us Roberth Mar DO IMG OB US PROCEDURES Final Resul t * (ABNORMAL) POC , Urine (02/12/2025 12:18 PM EST) , Urine Positive( A) Negative 02/12/2025 12:25 PM EST [facility] Comment: Meter: [id number] Charge Histotechnologist: ACE [id number] Urine Urine specimen obtained by clean catch procedure / Unknown 02/12/2025 12:18 PM EST 02/12/2025 12:25 PM EST us Roberth Mar DO LAB POINT OF CARE TE ST DOCKED DEVICE UNSOLICITED RESULTS Final Result [facility] [address] [place] [address], [place] [phone] * ABO/Rh (02/12/2025 12:10 PM EST) Only the most recent of2 resultswithin the time period is included. ABO Rh O POS 02/12/2025 12:39 PM EST [facility] Blood Venous blood specimen / Unknown Venipuncture / Unknown 02/12/2025 12:10 PM EST 02/12/2025 12:16 PM EST [facility] BLOOD BANK TEST ORDERABLES F inal Result Performing Organization Address [facility] Co de Phone Number [facility] [address] [place] [place] [address], * APTT (02/12/2025 12:10 PM EST) Pathologist [facility] APTT 27.9 22.0 - 38.0 s 02/12/2025 12:23 PM EST [facility] Comment:The therapeutic rang e will vary with the clinical condition of the patient. Refer to pharmacy protocol, power plan, physician, or pharmacy staff for questions concerning APTT therapeutic ranges. Blood Venous blood specimen / Unknown Venipuncture / Unknown 02/12/2025 12:10 PM EST 02/12/2025 12:13 PM EST [facility] BLOOD ORDERABLES Final Resul t Performing Organization Address City/[facility]/ZIP Co de Phone Number [facility] [address] [place] [place] [address], [place] [phone] * Protime-INR (02/12/2025 12:10 PM EST) Prothrombin Time 12.9 11.5 - 14.9 s 02/12/2025 12:23 PM EST [facility] INR 0.94 0.80 - 1.20 02/12/2025 12:23 PM EST [facility] Comment: Routine Therapeutic Range: 2.0-3.0 High Risk Therapeutic Range: 2.5-3.5 Blood Venous blood specimen / Unknown Venipuncture / Unknown 02/12/2025 12:10 PM EST 02/12/2025 12:13 PM EST us Roberth Mar DO LAB BLOOD ORDERABLES Final Resul t [facility] [address] [place] [place] [address], * Hepatic Function Panel (02/12/2025 12:10 PM EST) Pathologist [facility] Protein, Total 7.7 6.5 - 8.0 g/dL [facility] ANTI-SARS- COV-2_ROCH E DIAGNOSTIC S_EUA 02/12/2025 12:34 PM EST [facility] Albumin 4.20 3.20 - 5.50 g/dL ELECSYS ANTI-SARS- COV-2_ROCH E DIAGNOSTIC S_EUA 02/12/2025 12:34 PM EST [facility] Globulin 3.5 1.9 - 3.9 g/dL ELECSYS ANTI-SARS- COV-2_ROCH E DIAGNOSTIC S_EUA 02/12/2025 12:34 PM EST [facility] A/G Ratio 1.2 1.1 - 2.2 ELECSYS ANTI-SARS- COV-2_ROCH E DIAGNOSTIC S_EUA 02/12/2025 12:34 PM EST [facility] Bilirubin, Total 0.30 0.10 - 1.50 mg/dL ELECSYS ANTI-SARS- COV-2_ROCH E DIAGNOSTIC S_EUA 02/12/2025 12:34 PM EST [facility] Bilirubin, Direct <0.10 0.00 - 0.30 mg/dL ELECSYS ANTI-SARS- COV-2_ROCH E DIAGNOSTIC S_EUA 02/12/2025 12:34 PM EST [facility] Alkaline Phosphatase 70 35 - 104 U/L ELECSYS ANTI-SARS- COV-2_ROCH E DIAGNOSTIC S_EUA 02/12/2025 12:34 PM EST [facility] ALT 15 4 - 51 U/L ELECSYS ANTI-SARS- COV-2_ROCH E DIAGNOSTIC S_EUA 02/12/2025 12:34 PM EST [facility] AST 19 5 - 46 U/L ELECSYS ANTI-SARS- COV-2_ROCH E DIAGNOSTIC S_EUA 02/12/2025 12:34 PM EST [facility] Blood Venous blood specimen / Unknown Venipuncture / Unknown 02/12/2025 12:10 PM EST 02/12/2025 12:13 PM EST us Roberth Mar DO LAB BLOOD ORDERABLES Final Resul t [facility] [address] [place] [address], * (ABNORMAL) Basic Metabolic Panel (BMP) (02/12/2025 12:10 PM EST) Sodium 134(L) 135 - 145 mmol/L ELECSYS ANTI-SARS- COV-2_ROCH E DIAGNOSTIC S_EUA 02/12/2025 12:32 PM EST [facility] Potassium 3.8 3.5 - 5.0 mmol/L ELECSYS ANTI-SARS- COV-2_ROCH E DIAGNOSTIC S_EUA 02/12/2025 12:32 PM EST [facility] Chloride 98 98 - 110 mmol/L ELECSYS ANTI-SARS- COV-2_ROCH E DIAGNOSTIC S_EUA 02/12/2025 12:32 PM EST [facility] Carbon Dioxide 26.0 24.0 - 32.0 mmol/L ELECSYS ANTI-SARS- COV-2_ROCH E DIAGNOSTIC S_EUA 02/12/2025 12:32 PM EST [facility] Anion Gap 10 5 - 15 mmol/L ELECSYS ANTI-SARS- COV-2_ROCH E DIAGNOSTIC S_EUA 02/12/2025 12:32 PM EST [facility] Comment: Hypoalbuminemia can cause the anion gap to be underestimated. Each g/dL that albumin is decreased causes the anion gap to be decreased by 2.5 mmol/L. Anion gap corrected for hypoalbuminemia = Anion Gap + 2.5(4-Albumin) Glucose 96 70 - 100 mg/dL ELECSYS ANTI-SARS- COV-2_ROCH E DIAGNOSTIC S_EUA 02/12/2025 12:32 PM EST [facility] BUN 13.3 5.0 - 25.0 mg/dL ELECSYS ANTI-SARS- COV-2_ROCH E DIAGNOSTIC S_EUA 02/12/2025 12:32 PM EST [facility] Creatinine 0.60 0.60 - 1.20 mg/dL ELECSYS ANTI-SARS- COV-2_ROCH E DIAGNOSTIC S_EUA 02/12/2025 12:32 PM EST [facility] Calcium 9.5 8.5 - 10.5 mg/dL ELECSYS ANTI-SARS- COV-2_ROCH E DIAGNOSTIC S_EUA 02/12/2025 12:32 PM EST [facility] eGFR 129.5 >=60.0 mL/min/{1 .73_m2} 02/12/2025 12:32 PM EST [facility] Comment: GFR calculated based on CKD-EPI 2020 Creatinine Equation Age (Years) Average GFR 20-29 116 mL/min/1.73 m2 30-39 107 mL/min/1.73 m2 40-49 99 mL/min/1.73 m2 50-59 93 mL/min/1.73 m2 60-69 85 mL/min/1.73 m2 70+ 75 mL/min/1.73 m2 Acceptable GFR: >= 60 mL/min/1.73 m2 Chronic Kidney Disease: <60 mL/min/1.73 m2 Kidney Failure: <15 mL/min/1.73 m2 Blood Venous blood specimen / Unknown Venipuncture / Unknown 02/12/2025 12:10 PM EST 02/12/2025 12:13 PM EST us Roberth Mar DO LAB BLOOD ORDERABLES Final Resul t [facility] Organization Address City/State/ZIP Co de Phone Number [facility] [address] [place] [address], [place] [phone] * (ABNORMAL) Hcg Serum Qual W/ Reflex To Quant (02/04/2025 10:39 AM EDT) [facility] Test Qual, Serum Positive( A) Negative 02/04/2025 11:07 AM EDT [facility] Blood Venous blood specimen / Unknown Venipuncture / Unknown 02/04/2025 10:39 AM EDT 02/04/2025 10:44 AM EDT Narrative [facility] ARTURO SALCIDO - 02/04/2025 11:07 AM EDT Please note that a Negative or Positive Qualitative or Quantitative Test does not, absolutely confirm or exclude . (e.g. less than 1 week gestation, abnormal gestation). Recommend repeat test in 48 to 72 hours if results are equivocal. Harmony Dunne PA-C LAB BLOOD ORDERABLES Fin al Result Performing Organization Address [facility] Co de Phone Number [facility] [address] [place] [address], [place] [phone] * (ABNORMAL) HCG TOTAL QUANTITATIVE (02/03/2025 10:30 AM EDT) [facility] Beta-hCG Quant 2,045(H) mIU/mL [facility] Comment: Reference Range Non or premenopausal <5 Postmenopausal <10 Values from different assay methods may vary. The use of this assay to monitor or to diagnose patients with cancer or any condition unrelated to has not been cleared or approved by the FDA or the furnace feeder of the assay. 02/03/2025 10:3 0 AM EDT 02/03/2025 10:37 AM EDT [facility] - 02/04/2025 5:41 AM EDT FASTING:YES FASTING: YES JUAN PABLO JACKSON MD LAB BLOOD ORDERABLES Final Result [facility] [address] [place] [address] * (ABNORMAL) Respiratory panel (11/08/2024 5:06 AM EDT) Adenovirus, PCR Detected(A ) Not Detected QIASTAT-DX RESPIRATORY SARS-COV-2 PANEL_QIAGEN [facility] 11/08/2024 6:47 AM EDT [facility] Coronavirus (229E, HKU1, NL63, OC43) PCR Not Detected Not Detected QIASTAT-DX RESPIRATORY SARS-COV-2 PANEL_QIAGEN [facility]_EUA 11/08/2024 6:47 AM EDT [facility] Comment:There is no clinical or therapeutic significance on differentiating between the 4 endemic non-COVID Coronavirus genotypes. SARS COV2 COVID19 PCR Detected(A ) Not Detected QIASTAT-DX RESPIRATORY SARS-COV-2 PANEL_QIAGEN [facility] 11/08/2024 6:47 AM EDT [facility] Comment: This test is intended for identifying multiple respiratory viruses, including SARS-CoV-2 and other endemic coronaviruses from nasopharyngeal swab, sputum, bronchial aspirates/lavages/washes, etc. This test should be ordered accordingly with the current CDC guidelines and in consultation with Infection Prevention or the [facility] if required. This assay is approved by the FDA under the Emergency Use Authorization (EUA) status. This test was developed and its performance characteristics determined by [facility]. It has not been cleared or approved by the Food and Drug Administration (FDA). The laboratory is regulated under the Clinical Laboratory Improvements Act (CLIA) as qualified to perform high complexity testing. This test is used for clinical purposes. It should not be regarded as investigational or for research. Metapneumovirus PCR Not Detected Not Detected [facility]IASTAT-DX RESPIRATORY SARS-COV-2 PANEL_QIAGEN [facility] 11/08/2024 6:47 AM EDT [facility] Rhinovirus/Entero virus PCR Not Detected Not Detected QIASTAT-DX RESPIRATORY SARS-COV-2 PANEL_QIAGEN [facility] 11/08/2024 6:47 AM EDT [facility] Influenza A PCR Not Detected Not Detected [facility]IASTAT-DX RESPIRATORY SARS-COV-2 PANEL_QIAGEN [facility] 11/08/2024 6:47 AM EDT [facility] Influenza A H1 PCR Not Detected Not Detected QIASTAT-DX RESPIRATORY SARS-COV-2 PANEL_QIAGEN [facility] 11/08/2024 6:47 AM EDT [facility] Influenza A H1 2009 PCR Not Detected Not Detected [facility]STAT-DX RESPIRATORY SARS-COV-2 PANEL_QIAGEN [facility] 11/08/2024 6:47 AM EDT [facility] Influenza A H3 PCR Not Detected Not Detected [facility]STAT-DX RESPIRATORY SARS-COV-2 PANEL_QIAGEN [facility] 11/08/2024 6:47 AM EDT [facility] Influenza B, PCR Not Detected Not Detected [facility]STAT-DX RESPIRATORY SARS-COV-2 PANEL_QIAGEN [facility] 11/08/2024 6:47 AM EDT [facility] Parainfluenza Virus 1, PCR Not Detected Not Detected [facility]IASTAT-DX RESPIRATORY SARS-COV-2 PANEL_QIAGEN [facility] 11/08/2024 6:47 AM EDT [facility] Parainfluenza Virus 2, PCR Not Detected Not Detected QIASTAT-DX RESPIRATORY SARS-COV-2 PANEL_QIAGEN [facility] 11/08/2024 6:47 AM EDT [facility] Parainfluenza Virus 3, PCR Not Detected Not Detected [facility]IASTAT-DX RESPIRATORY SARS-COV-2 PANEL_QIAGEN [facility] 11/08/2024 6:47 AM EDT [facility] Parainfluenza Virus 4, PCR Not Detected Not Detected QIASTAT-DX RESPIRATORY SARS-COV-2 PANEL_QIAGEN [facility] 11/08/2024 6:47 AM EDT [facility] Chlamydia Pneumoniae PCR Not Detected Not Detected QIASTAT-DX RESPIRATORY SARS-COV-2 PANEL_QIAGEN [facility] 11/08/2024 6:47 AM EDT [facility] Mycoplasma pneumoniae PCR Not Detected Not Detected [facility]IASTAT-DX RESPIRATORY SARS-COV-2 PANEL_QIAGEN [facility] 11/08/2024 6:47 AM EDT [facility] RSV PCR Not Detected Not Detected [facility]STAT-DX RESPIRATORY SARS-COV-2 PANEL_QIAGEN [facility] 11/08/2024 6:47 AM EDT [facility] Swab Nasopharyngeal structure / Unknown Non-blood Collection / Unknown 11/08/2024 5:06 AM EDT 11/08/2024 5:10 AM EDT Brittany Quezada LAB MICROBIOLOGY - GENERA L ORDERABLES Final Result [facility] [address] [facility] [place] [address], * HIV-1 and HIV-2 antibodies (06/26/2022) Ext HIV-1 and HIV-2 Antibodies neg Blood Venous blood specimen / Unknown Ramón Seals MD LAB BLOOD ORDERABLES Final Result from Last 3 Months or Most Recently Relevant to Health Maintenance Additional Health Concerns Infection Onset Date Last Indicated Gastrointestinal Rule-Out 04/19/20232023 Insurance RAHEEL RAHEEL Member Subscriber Plan / Payer (Ef fective 2021-) Name:Jose Manuel Glasgow Relation to Subscriber:Self Name:Jose Manuel Glasgow Payer ID:[id number] ([facility] Type:EPO Address: [address] [place] [phone] RAHEEL Member Subscriber [facility] Name:Jose Manuel Glasgow Relation to Subscriber:Self Name:Jose Manuel Glasgow Payer ID:[id number] ([facility]) Type:EPO Address: [address] [place] [phone] RAHEEL Member Subscriber Plan / Payer ( fective 2021-) Name:Jose Manuel Glasgow Relation to Subscriber:Self Name:Jose Manuel Glasgow Payer ID:[id number] ([facility]) Type:EPO Address: [address] [address] [place] [address] Advance Directives * Full Code (Latest Code Status on File) Date Activated Date Inactivated Comments 08/23/2022 10:46 AM 08/25/2022 4:49 PM Care Teams [employer] Relationship Specialty Start Date End Date JUAN PABLO JACKSON MD PCP - General Family Medicine 06/26/21 JUAN PABLO JACKSON MD [address] [place] [address] [employer] [facility]. [address] [place] [address] PCP - Raheel ZHONG Attributed Provider 11/11/23
--- OUTSIDE RECORDS SUMMARY | 2025-04-07 18:29 | XMS_ITS | Encounter Summary ---
Author Organization [facility] Address [address] [place] [address] Care Team Providers Care Senior Caregiver Name Role Phone JUAN PABLO JACKSON MD Primary Care Provid er JUAN PABLO JACKSON MD Unavailable + [phone] Larry Mata Unavailable Unavailable JUAN PABLO JACKSON MD Unavailable + [phone] Zuri Ni RN Unavailable [facility] labblaine Source Comments Please be aware that You and/or your organization are solely responsible for the use, security, privacy, and any decisions made with any information you receive from [email or web address] Reason for Visit * Reason Comments Med Refill Encounter Details Date Type Department Care Team (Late st Contact Info) Description 10/22/2023 Refill [facility] Family Medicine at [facility] [address] [place] [address] JUAN PABLO JACKSON MD [address] [place] [address] Back muscle spasm Social History Tobacco Use Types Packs/Day Years [...] by your partner or ex-partner? No 08/24/2022 Overall Financial Resource Strain (CARDIA) Answe r Date Recorded How hard is it for you to pa y for the very basics like food, housing, medical care, and heating? Not hard at all 08/24/2022 PHQ-2 Answer Date Recorded Patient Health Questionnaire-2 Score 0 07/11/2021 [facility] - Occupational Stress Questionnaire Answer Date Recorded Do you feel stress - tense, restless, nervous, or anxious, or unable to sleep at night because your mind is troubled all the time - these days? Not at all 08/24/2022 [place] Depression Scale Answer Date Recorded [place] Depression Scale Total 0 08/24/2022 The thought [...] things needed for daily living? 2 08/24/2022 [facility] Housing Answer Date Recorded Living Situation Not on file 11/26/2022 Housing Problems Not on file 11/26/2022 [facility] Safety Answer Date Recorded Threatened [...] Pilar Sharma RN documented in this encounter Miscellaneous Notes * Telephone Encounter - TRACI Yadav - 10/22/2023 10:50 AM EDT Duplicate request. documented in this encounter Plan of Treatment Not on file documented as of this encounter Visit Diagnoses Diagnosis Back muscle spasm Other symptoms referable to back documented in this encounter Additional Health Concerns Infection Onset Date Last Indicated Resolved Time Gastrointestinal Rule-Out 04/19/2023 04/19/2023 COVID-19 Rule-Out 06/15/2024 06/15/2024 06/15/2024 1:31 PM EST Respiratory Rule-Out 11/08/2024 11/08/2024 025 6:47 AM EDT Adenovirus 11/08/2024 11/08/2024 12/06/2024 10:0 6 PM EDT COVID-19 11/08/2024 11/08/2024 11/28/2024 10:0 4 PM EDT COVID-19 Rule-Out 03/25/2025 03/25/2025 03/25/2025 8:00 AM EST documented as of this encounter Care Teams Senior Caregiver Relationship Specialty Start Date End Date JUAN PABLO JACKSON MD PCP - General Family Medicine 06/26/21 JUAN PABLO JACKSON MD PCP - Raheel CFD Attributed by Algorithm Provider 08/23/21 12/04/23 JUAN PABLO JACKSON MD [address] [place] [id number] PCP - Raheel CFD Attributed Provider 11/11/23 Larry Mata Costume Technician[employer]onge Buffer 03/14/24 03/20/24 Zuri Ni RN Care Sponge Buffer 06/15/24 06/15/24 documented as of this encounter
[2025-04-07 19:37] VITALS: BP 109/60; PULSE 108; RESP 17; TEMP 36.7; O2SAT 99
[2025-04-07 19:50] VITALS: O2SAT 100
[2025-04-07 19:52] VITALS: BP 0/0; PULSE 0; RESP 0; TEMP -17.7; TEMP 0; O2SAT 100
== END 2025-04-07 19:53 | disposition home or self-care (01) ==
PROVIDERS: Physician Assistant; Emergency Provider Student in an Organized Health Care Education/Training Program
DX: O98.512 Other viral diseases complicating pregnancy, second trimester (principal); J10.1 Influenza due to other identified influenza virus with other respiratory manifestations; O23.42 Unspecified infection of urinary tract in pregnancy, second trimester; N39.0 Urinary tract infection, site not specified; O21.9 Vomiting of pregnancy, unspecified; Z3A.14 14 weeks gestation of pregnancy; R05.9 Cough, unspecified; Z03.818 Encounter for observation for suspected exposure to other biological agents ruled out
CPT/HCPCS: 80053; 81001; 83690; 84702; 85025; 87086; 87637; 96365; 99284; 99285; J0131